=== PATIENT | male | born 1940 | race Caucasian/White ===

== ENCOUNTER 2024-09-08 10:54 | Outpatient (CLI) | payer MEDICARE, SELFPAY | END 2024-09-08 10:55 | disposition home or self-care (01) | LOC: RAD 10:57 | PROVIDERS: PCP Family Medicine; Visit Provider Orthopaedic Surgery Sports Medicine | DX: M16.11 Unilateral primary osteoarthritis, right hip (principal) | CPT/HCPCS: 20610; 77002; Q9966 ==

== ENCOUNTER 2025-07-13 09:37 | Day surgery (SDC) | payer MEDICARE, BC, SELFPAY ==
[2025-07-13] VITALS (26 sets, daily range): BP systolic 75–159; BP diastolic 53–74; PULSE 44–67; RESP 12–20; TEMP 35.9–37; O2SAT 93–100; BMI 27.1
[2025-07-13] MEDS: SODIUM CHLORIDE 0.9 % (FLUSH) 10 ML SYRINGE IVF (10:27)
[2025-07-13] MEDS: LACTATED RINGERS 1000 ML 1,000 ML 100 ML IV ×2 (10:27→13:59)
--- NOTE | 2025-07-13 10:51 | W.PM.H&PU ---
History & Physical Update History & Physical Update H&P Reviewed and patient assessed: No changes noted
[2025-07-13] MEDS: ACETAMINOPHEN 500 MG TABLET 1000 MG PO ×2 (11:50→20:56)
[2025-07-13] MEDS: OXYCODONE (CR) 10 MG TAB.ER.12H PO (11:50)
--- NOTE | 2025-07-13 11:53 | SUR.PREOP ---
TIME?OUT:?1150 PT/RN/MDA?VERIFICATION?OF?SURGICAL?SITE,?PROCEDURE,?AND?CONSENT OBTAINED?PRIOR?TO?INVASIVE?PROCEDURE.
[2025-07-13] MEDS: MIDAZOLAM HCL 1 MG/ML inj IVP (11:54)
--- NOTE | 2025-07-13 12:56 | CRLHL7_ITS ---
For Patients: As a result of the Cures Act, medical imaging exams and procedure reports are released immediately into your electronic medical record. You may view this report before your referring provider. If you have questions, please contact your health care provider. Indication: JOHANA post op Technique: AP hip centered pelvis and lateral view right hip Findings/Impression: Hardware from a right total hip arthroplasty is in satisfactory position. Bone alignment is normal. No sign of acute fracture. Postop changes are within normal limits. Dictated by Eric Burdick MD @ 07/13/2025 3:55:56 PM (Electronically Signed)
[2025-07-13] MEDS: TRANEXAMIC ACID 100 MG/ML INJ 1000 MG IV (12:58)
--- NOTE | 2025-07-13 12:59 | P.ANES_ITS ---
Anesthesia Charges Start Date/Time Anesthesia Start Date: 07/13/25 Anesthesia Start Time: 12:29 Stop Date/Time Anesthesia Stop Date: 07/13/25 Anesthesia Stop Time: 15:35 Summary Extremes of Age - Over 70 or under 1: MDA Coding CPT Codes CPT Codes: ANESTH HIP ARTHROPLASTY - 42561 ([id number]) P2 - PATIENT W/MILD SYST DISEASE, QK - JEWEL HOLE ROUGH OPENER 2-4 CNCRNT ANES PROC, QX - SUPERVISOR BEAM DEPARTMENT SVC W/ MD MED DIRECTION Additional Codes: Summary - Extremes of Age - Over 70 or under 1: MDA ([id number])
--- NOTE | 2025-07-13 12:59 | W.PM.NB ---
Nerve Block Nerve Block Time Seen by Provider: 11:50 Date Seen: 07/13/25 Type of block requested by surgeon for post-operative analgesia: FAROOQ/LFCN Side: right Time out performed: Yes Verification of patient name: Yes Verification of date of : Yes Site marking: site marked Name of person performing procedure: Cullen Continuous monitoring Was continuous monitoring of O2 sat, B/P, monitoring analyst, recorded every 15 minutes?: Yes Procedure Checklist: sterile prep, needles and gloves Ultrasound guided. Images saved: Yes Medications given in 5ml increments after negative aspiration: Ropivicaine %: 0.5 mL: 30 Needle gauge: 20 Precedex (mcg): 25 Patient tolerated procedure well: Yes Additional comments: Needle noted below psoas tendon needle noted adjacent to LFCN Block Charges Block Charge (with Pro Fee): Other Periph Nerve Block Use of Ultrasound Machine for Block: Yes- US Guidance/pain block
--- NOTE | 2025-07-13 12:59 | W.ANESCHARGE ---
Anesthesia Charges Start Date/Time Anesthesia Start Date: 07/13/25 Anesthesia Start Time: 12:29 Stop Date/Time Anesthesia Stop Date: 07/13/25 Anesthesia Stop Time: 15:35 Summary Extremes of Age - Over 70 or under 1: MDA Coding CPT Codes CPT Codes: ANESTH HIP ARTHROPLASTY - 61689 ([id number]) P2 - PATIENT W/MILD SYST DISEASE, QK - FEATHER TRIMMER 2-4 CNCRNT ANES PROC, QX - FLIGHT ATTENDANT SVC W/ MD MED DIRECTION Additional Codes: Summary - Extremes of Age - Over 70 or under 1: MDA ([id number])
--- NOTE | 2025-07-13 13:15 | CRLHL7_ITS ---
For Patients: As a result of the Cures Act, medical imaging exams and procedure reports are released immediately into your electronic medical record. You may view this report before your referring provider. If you have questions, please contact your health care provider. Indication: Hip replacement surgery Technique: AP hip fluoroscopic image. Fluoroscopy time 37.5 seconds. Findings/Impression: Hardware from a right total hip arthroplasty is in satisfactory position. Dictated by Eric Burdick MD @ 07/13/2025 3:18:27 PM (Electronically Signed)
--- NOTE | 2025-07-13 14:33 | PM.ORPRC ---
Procedure Note Date of procedure: 07/13/25 Procedure: PREOPERATIVE DIAGNOSIS: 1. Right hip osteoarthritis, severe, primary POSTOPERATIVE DIAGNOSIS: 1. Right hip osteoarthritis, severe, primary PROCEDURE: 1. Right total hip arthroplasty-anterior approach 2. Intraoperative fluoroscopy interpreted by León Finnegan M.D. for intraoperative evaluation of arthroplasty implant component positioning and leg length/offset evaluation. Fluoroscopy time was 37.5 seconds. SURGEON: León Finnegan MD. ADULT EDUCATION MANAGER: Estevan Tinajero PA-C; KAILA Barrera - Of note, a skilled educational program assistant was critical for this case to aid in patient positioning, tissue retraction, limb manipulation/positioning, and closure. ANESTHESIA: General endotracheal anesthetic EBL: 1000 mL (this seemed to come from both a vessel in the posterior capsular tissue as well as general oozing from the femoral canal.) IMPLANTS: DePuy J[employer]J uncemented total hip [place] cup size 60, hole eliminator, +4 neutral liner Actis stem, high offset, size 9 +1.5 mm ceramic 36 mm head COMPLICATIONS: None evident INDICATIONS: The patient is a pleasant 84-year-old male who has experienced severe right hip pain and difficulty bearing weight. Workup included x-rays which revealed severe osteoarthrosis in the hip. Given the deformity, the dysfunction, and the pain, as well as the failure of nonoperative management, recommendation was made for surgery. FINDINGS: Full-thickness chondral loss diffusely throughout the femoral head and acetabulum. Large 1 cm diameter cyst within the superior central acetabulum. Large effusion upon entering the joint. Osteophytes on the femoral head/neck junction and perimeter of the acetabulum. DESCRIPTION OF PROCEDURE: Following a thorough discussion of risks, benefits, and alternatives consent was obtained and the right hip was marked. The patient was brought to the operating room and placed supine on the operating table. Induction of anesthesia was undertaken. 2 g IV Ancef and 1 g tranexamic acid was administered within 1 hr of incision preoperatively. Proper time-out was performed identifying proper patient, site, procedure. The operative extremity was prepped and draped in the appropriate sterile fashion using ChloraPrep after the patient was positioned on the [place] table with head in neutral alignment and all bony prominences well padded. C-arm fluoroscopic imaging was utilized to confirm proper pelvis rotation and position, and to get true AP films of both the contralateral left, and the affected right hip. This is for comparison. A longitudinal incision was made starting approximately 1 cm distal to the ASIS, and 2-3 cm lateral. The incision was extended distally aiming toward the fibular head. Sharp incision through skin and bovie cautery through the subcutaneous tissue allowed identification of the TFL fascia. This was sharply divided, and the fascia bluntly released from the muscle fibers as we dissected medial. Upon coming to the medial border, we were able to retract the TFL laterally, and penetrated the deeper fascia and identify the crossing circumflex vessels. These were ligated/cauterized. The rectus was elevated from the capsule, and retractors placed laterally and medially along the femoral neck to help with visualization of the capsule. We then performed an inverted T capsulotomy. The capsule was tagged for later repair. Retractors were placed inside the capsule. The femoral neck was visualized after releasing medially down to the lesser trochanter, along the saddle laterally, and up onto the acetabulum. The femoral neck cut was made in line with our preoperative templating. The head was removed in a single piece, and sized. We turned our attention to acetabular preparation. Initially, the labrum was resected from around the perimeter, the pulvinar was excised, allowing us to visualize the false wall. We started the reaming with a 43 mm reamer. This was medialized down to the true wall. We then enlarged our reamers sequentially up to one size less than the selected cup size. We trialed at the same size and found it to have an excellent fit. The selected cup was then opened, inserted, and impacted in line with the goal of 40? of abduction, and 20-25? of anteversion. This was confirmed on C-arm fluoroscopic imaging to be in the appropriate/goal position. Once the cup was placed we placed a hole eliminator and a liner consistent with preop planning. Attention was turned to the femoral preparation. The limb was extended, externally rotated, and adducted. The posteromedial capsule was released, as retractors were placed allowing excellent access to the proximal femur. Initially a dust box worker was followed by canal finder followed by various broaches. We broached sequentially up to the size noted above, found it to have excellent rotational control, and trialing various heads and necks, revealed that appropriate neck offset, and the above noted head size provided the greatest stability, and catholic of length, and offset. C-arm fluoroscopic imaging confirmed position of the stem, as well as leg lengths, which were compared with the pre procedure all fluoroscopic images. Trial implants were removed, the real femoral stem inserted, as was the appropriate head. After reducing, the leg was placed through range of motion and stability was confirmed anterior, posterior, and lateral. A 3 min Betadine soak was then performed, and thorough irrigation with normal saline followed. Closure of the capsule was performed with #1 PDS. Bleeding was confirmed to be controlled at this stage, and the TFL fascia was closed with #0 strata fix. Subcutaneous, and subcuticular closure was performed with 2-0 Stratafix and 4-0 Stratafix, respectively. Dressings were applied, and the patient was awoken from anesthesia and transferred the PACU in stable condition. A skilled educational program assistant was critical for this case to aid in patient positioning, tissue retraction, acetabular and proximal femoral exposure, limb manipulation/positioning, dislocation/relocation, patient safety, and closure. PLAN: 1. Weight bear as tolerated operative extremity. 2. 23 hr perioperative antibiotics. 3. Ice. 4. PT/OT consults for ambulation assistance/mobility education. 5. Social work consult for discharge planning. 6. DVT prophylaxis with at SCDs and Xarelto x5 days followed by aspirin for a total of 1 month.
--- NOTE | 2025-07-13 15:46 | P.ANES_ITS ---
Anesthesia Charges Start Date/Time Anesthesia Start Date: 07/13/25 Anesthesia Start Time: 12:29 Stop Date/Time Anesthesia Stop Date: 07/13/25 Anesthesia Stop Time: 15:35 Summary Extremes of Age - Over 70 or under 1: MEDIUM CYCLE SALESPERSON Coding CPT Codes CPT Codes: ANESTH HIP JOINT SURGERY - 73168 ([id number]) P2 - PATIENT W/MILD SYST DISEASE, QK - SENIOR POLICY ANALYST 2-4 CNCRNT ANES PROC, QX - MEDIUM CYCLE SALESPERSON SVC W/ MD MED DIRECTION Additional Codes: Summary - Extremes of Age - Over 70 or under 1: MEDIUM CYCLE SALESPERSON ([id number])
--- NOTE | 2025-07-13 15:46 | W.ANESCHARGE ---
Anesthesia Charges Start Date/Time Anesthesia Start Date: 07/13/25 Anesthesia Start Time: 12:29 Stop Date/Time Anesthesia Stop Date: 07/13/25 Anesthesia Stop Time: 15:35 Summary Extremes of Age - Over 70 or under 1: [place] Coding CPT Codes CPT Codes: ANESTH HIP JOINT SURGERY - 24653 ([id number]) P2 - PATIENT W/MILD SYST DISEASE, QK - ADJUNCT TEACHER 2-4 CNCRNT ANES PROC, QX - [place] [place] [employer] SVC W/ MD MED DIRECTION Additional Codes: Summary - Extremes of Age - Over 70 or under 1: [place] [employer] ([id number])
[2025-07-13] MEDS: ePHEDrine sulfate 5 MG/ML inj IVP (16:02)
--- NOTE | 2025-07-13 16:12 | SUR.PHASEI ---
Patient having pain when waking up from anesthesia, Fentanyl given for pain time one.
--- NOTE | 2025-07-13 16:30 | SUR.PHASEI ---
Patient meets discharge criteria from PACU
--- NOTE | 2025-07-13 16:52 | PM.IMCN1 ---
Date of Consult Patient: [place] ([facility]) Consult date: 07/13/25 Requesting Physician: Orthopedics Primary Care Provider: Sonido Christopher MD Consult Narrative Reason for consult: Medical management Narrative: Laith Juan is a 84 year old male past medical history significant for hypertension, bradycardia, hyperlipidemia, cardiomyopathy, glaucoma is POD#0 s/p right total hip arthroplasty, Dr. Finnegan. There have been no perioperative complications or nursing concerns reported. Estimated total blood loss documented as 1000 ml. Updated and reviewed the active medical problems, past medical history, past surgical history, social history, allergies and medications in our electronic EMR. Postoperatively, patient is seen with at bedside, reports pain is currently adequately managed. Has been nauseous postoperatively with small amounts of clear liquid emesis. Denies headache or dizziness. Denies chest pain or shortness of breath. Denies abdominal pain. Review of Systems Narrative: REVIEW OF SYSTEMS: Complete review of systems performed and negative unless otherwise stated in HPI or below. [facility] Medical History (Updated 07/13/25 @ 17:33 by Vanita Thakur PA-C) Bradycardia ?R00.1 - Bradycardia, unspecified (ICD-10) Glaucoma ?H40.9 - Unspecified glaucoma (ICD-10) Cardiomyopathy ?I42.9 - Cardiomyopathy, unspecified (ICD-10) Benign essential hypertension ?I10 - Essential (primary) hypertension (ICD-10) Hyperlipidemia ?E78.5 - Hyperlipidemia, unspecified (ICD-10) Subluxation of right shoulder joint ?S43.001A - Unspecified subluxation of right shoulder joint, initial encounter (ICD-10) Traumatic tear of supraspinatus tendon of right shoulder ?S46.811A - Strain of other muscles, fascia and tendons at shoulder and upper arm level, right arm, initial encounter (ICD-10) Subacromial impingement of right shoulder ?M75.41 - Impingement syndrome of right shoulder (ICD-10) Degenerative joint disease of right shoulder ?M19.011 - Primary osteoarthritis, right shoulder (ICD-10) Left carpal tunnel syndrome ?G56.02 - Carpal tunnel syndrome, left upper limb (ICD-10) Surgical History 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) ?Z96.662 - Presence of left artificial ankle joint (ICD-10) History of arthroscopy of left shoulder (05/06/18) ?Z98.890 - Other specified postprocedural states (ICD-10) 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) ?Z96.652 - Presence of left artificial knee joint (ICD-10) Family History Brother Kidney disease Father Heart disease Mother Cerebral aneurysm Social History Narrative: -Emilia What is your current living situation?: I presently have a place to live Problems where you live: no known problems Problems where you live details: na In the past 12 months, utilities in danger of being shut off: no In past 12 months, lack of transportation kept you from medical appts, meetings, work, or getting things needed for daily living: no In the past 12 mos, have been you worried that your food would run out before you had money to buy more?: never true In the past 12 mos, the food you bought just didn't last and you didn't have money to buy more?: never true Smoking Status: Never smoker Do you use any of these nicotine containing products: None Second hand tobacco smoke exposure: No How often do you have a drink containing alcohol: 2-3 times a week AUDIT-C Alcohol total score: 3 Non-prescribed substance use: denies use Caffeine: Yes How often does anyone, including family, friends and others, physically hurt you: never How often does anyone, including family, friends and others, insult or talk down to you: never How often does anyone, including family, friends and others, threaten you with harm: never How often does anyone, including family, friends and others, scream or curse at you: never service: Yes Meds Home Medications and Allergies Home Medications ?Medication ?Instructions ?Recorded ?Confirmed ?Type latanoprost 0.005 % eye drops 1 drp ophthalmic (eye) .Bedtime 12/17/22 07/13/25 History cholecalciferol (vitamin D3) 50 50 mcg PO DAILY 05/31/25 07/13/25 History mcg (2,000 unit) capsule lisinopril 20 mg tablet 20 mg PO DAILY 05/31/25 07/13/25 History acetaminophen 500 mg capsule 500 - 1,000 mg (1 - 2 x 500 mg) PO 07/13/25 Rx Q6H PRN #100 caps aspirin 81 mg tablet,delayed 81 mg PO BID #50 tabs 07/13/25 Rx release glucosamine-chondroitin 750 mg-600 1 tab PO DAILY 07/13/25 07/13/25 History mg tablet multivitamin (Daily Vitamin 1 tab PO DAILY 07/13/25 07/13/25 History Formula tablet) oxycodone 5 mg tablet 2.5 - 5 mg (0.5 - 1 x 5 mg) PO 07/13/25 Rx Q4-6H PRN pain #42 tabs rivaroxaban 10 mg tablet 10 mg PO DAILY #4 tabs 07/13/25 Rx sennosides 8.6 mg-docusate sodium 1 - 4 tab-cap (1 - 4 x 8.6-50 mg) 07/13/25 Rx 50 mg tablet (Senna-S) PO BID PRN constipation #60 tabs Allergies Allergy/AdvReac Type Severity Reaction Status Date / Time atorvastatin Allergy Verified 07/13/25 10:28 diatrizoate sodium Allergy Verified 07/13/25 10:28 ezetimibe Allergy Verified 07/13/25 10:28 Gadolinium-Containing Allergy Verified 07/13/25 10:28 Contrast Medi oxaprozin Allergy Verified 07/13/25 10:28 simvastatin Allergy Verified 07/13/25 10:28 Exam Narrative: Exam Narrative: PHYSICAL EXAM General: Pleasant, conversant, NAD HEENT: Normocephalic, atraumatic, sclera white, EOMI, oral mucosa moist Cardiovascular: RRR, S1S2. No pitting edema Pulmonary: CTA bilaterally without rhonchi, rales, expiratory wheezes. No dyspnea Neurological: Alert, answering questions appropriately, cranial nerves intact, no focal findings Extremities: No gross joint deformity or swelling. Postoperative dressing in place, dry. Neurovascularly intact Skin: Warm, dry. Const: Vital Signs, click to edit/add: Vital Signs - 24 hr 07/13/25 10:25 07/13/25 15:32 07/13/25 15:35 Temperature 97.8 F 98.3 F Pulse Rate 64 67 65 Respiratory Rate 16 16 14 Blood Pressure 159/74 H 75/60 L 82/59 L Pulse Oximetry 97 95 96 Oxygen Delivery Me thod Room Air Room Air 07/13/25 15:40 07/13/25 15:45 07/13/25 15:50 Temperature Pulse Rate 55 L 60 54 L Respiratory Rate 12 16 16 Blood Pressure 102/54 L 96/58 L 95/55 L Pulse Oximetry 93 94 95 Oxygen Delivery Me thod Room Air 07/13/25 15:55 07/13/25 16:00 07/13/25 16:05 Temperature Pulse Rate 59 L 57 L 55 L Respiratory Rate 16 14 17 Blood Pressure 96/57 L 88/53 L 92/56 L Pulse Oximetry 100 100 93 Oxygen Delivery Me thod 07/13/25 16:10 07/13/25 16:15 07/13/25 16:20 Temperature 98.3 F Pulse Rate 64 60 54 L Respiratory Rate 20 14 16 Blood Pressure 99/58 L 113/58 L 112/53 L Pulse Oximetry 96 97 100 Oxygen Delivery Me thod Room Air 07/13/25 16:25 Temperature Pulse Rate 61 Respiratory Rate 14 Blood Pressure 113/69 Pulse Oximetry 99 Oxygen Delivery Me thod Assessment and Plan Assessment and plan (1) Osteoarthritis of right hip: Problem comment: -POD#0 s/p R JOHANA, Dr. Finnegan, 07/13/25 -perioperative management including pain management and anticoagulation per Orthopedic surgery -encourage postoperative pulmonary hygiene -PT OT consults -plan to discharge home with spouse tomorrow -EBL 1000 mL, recheck hemoglobin in a.m. Status: Chronic (2) Bradycardia: Problem comment: -chronic, baseline 50s, pre op EKG shows vent rate 57 Status: Acute (3) Benign essential hypertension: Problem comment: -resume lisinopril on d/c Status: Acute Plan May resume home medications upon discharge. Consider antihypertensives in the morning if necessary. Hospital medicine team will sign off. Please contact our service with any questions or concerns. Total Time Spent Total Time Spent: Today I spent 55 minutes seeing the patient, reviewing Expanse and EPIC notes/diagnostics, discussing the care plan with our care time that includes social work, PT/OT, pharmacy, RT, shelter and documenting my impressions and plan in the medical record.
[2025-07-13] MEDS: PROCHLORPERAZINE 5 MG/ML VIAL IV (17:56)
[2025-07-13] MEDS: LACTATED RINGERS 1000 ML 1,000 ML 75 ML IV (18:02)
[2025-07-13] MEDS: CEFAZOLIN 2 GM in 0.9 % SODIUM CHLORIDE Mini-bag 100 ML IVPB (18:52)
[2025-07-13] MEDS: ONDANSETRON 2 MG/ML inj 4 MG IVP (20:21)
[2025-07-13] MEDS: SENNOSIDES 1 TAB TABLET 2 TAB PO (20:57)
--- NOTE | 2025-07-13 23:31 | PC.NURSE ---
Pt returned from OR at 1637. Pt reported pain 3-10/10 , prn and scheduled pain Meds given. pt had N/V x3, prn nausea meds given. Pt reports nausea resolving. Pt assist of 1 w/walker. pt reports no pain or nausea at this time. pt sleeping comfortably in bed, pulse oximeter on.
[2025-07-14 03:00] VITALS: BP 125/62; PULSE 62; RESP 16; TEMP 36.8; O2SAT 98
[2025-07-14] MEDS: CEFAZOLIN 2 GM in 0.9 % SODIUM CHLORIDE Mini-bag 100 ML IVPB (03:05)
[2025-07-14] MEDS: ACETAMINOPHEN 500 MG TABLET 1000 MG PO ×2 (03:05→08:16)
--- NOTE | 2025-07-14 05:46 | PC.NURSE ---
End of shift report [id number]:?AxOx4.?VSS. Afebrile. On RA. Denies nausea/vomiting. Right hip dressing is C/D/I; CMS is intact.?Ambulates 1A, GB, W.?Rates pain from?a 4-5/10, prn pain meds offered and?given with?relief.?Pt is VIEJAS. Bed alarm on, call light within reach.?
[2025-07-14 06:33] LABS: Hemoglobin* 9.5 gm/dL (13.5-17.5)
[2025-07-14 07:10] VITALS: PULSE 71
[2025-07-14 07:40] VITALS: BP 111/59; PULSE 71; RESP 18; O2SAT 99
[2025-07-14] MEDS: SENNOSIDES 1 TAB TABLET 2 TAB PO (08:16)
[2025-07-14] MEDS: RIVAROXABAN 10 MG TABLET PO (08:16)
[2025-07-14] MEDS: SODIUM CHLORIDE 0.9 % (FLUSH) 10 ML SYRINGE IVF (08:17)
--- NOTE | 2025-07-14 13:54 | PC.NURSE ---
Pt pleasant and cooperative with all cares and tasks. Pain controlled per MAR. No BM, senna given with breakfast, educated on importance of keeping hydrated, ambulation, and stool softeners while using narcotics. IV DC'd, cath tip intact. DC instructions given verbally and in writing to pt and spouse. All questions answered. Pt to return home with . DC @ 6890
--- NOTE | 2025-07-14 22:30 | PM.ORPN ---
Subjective Subjective Date Seen: 07/14/25 Principal diagnosis: Status postop day 1, right total hip arthroplasty - anterior approach Interval history: Patient reports doing okay. No acute events over night, aside from nausea/vomiting in the early postop phase, remedy by anti nausea medications. No further nausea/vomiting. Recently finished breakfast without nausea/vomiting. Pain is mild, managed with scheduled and PRN medications, ice. Choosing to take 2.5 mg oxycodone as needed. Complains of soreness over the right lateral thigh. DVT prophylaxis: Rivaroxaban 5 days followed by 81 mg aspirin by mouth twice daily 25 days, SCDs, walking. Denies fevers, chills, aches, further N/V, CP, SOB/LOTT, or lightheadedness. Ortho Exam Narrative Exam Narrative: -Patient appears comfortable in recliner; no apparent acute distress. -Alert and oriented times 3 -Operative hip mildly swollen; soft tissues supple; no obvious erythema. No obvious hematoma. Ecchymosis minimal. Warmth appropriate. Sore to touch lateral right thigh -Surgical dressing clean, dry, intact; no obvious drainage, no erythematous streaking peripheral to the bandage -Bilateral calves soft and supple; no significant swelling, edema, tenderness, erythema, discoloration, warmth, or palpable cords -2+ DP/PT pulses, intact dermatomes and myotomes distally (5/5 strength). No numbness about the lateral femoral cutaneous nerve distribution. Const Vital Signs, click to edit/add: Vital Signs - 24 hr 07/13/25 22:50 07/13/25 23:00 07/13/25 23:00 Temperature 97.5 F L Pulse Rate 62 Pulse Rate [Right Pulse Oximeter] Respiratory Rate 14 14 Blood Pressure [Left Arm] 124/66 Blood Pressure [Right Arm] Pulse Oximetry 98 98 Oxygen Delivery Method Room Air Room Air 07/14/25 03:00 07/14/25 07:10 07/14/25 07:40 Temperature 98.2 F Pulse Rate 71 Pulse Rate [Right Pulse Oximeter] 62 Respiratory Rate 16 18 Blood Pressure [Left Arm] 125/62 Blood Pressure [Right Arm] Pulse Oximetry 98 99 Oxygen Delivery Method Room Air Room Air 07/14/25 07:40 Temperature Pulse Rate Pulse Rate [Right Pulse Oximeter] 71 Respiratory Rate 18 Blood Pressure [Left Arm] Blood Pressure [Right Arm] 111/59 L Pulse Oximetry 99 Oxygen Delivery Method Room Air Assessment and Plan Assessment and plan (1) Osteoarthritis of right hip: Problem details: -POD#1 s/p R JOHANA, Dr. Finnegan, 07/13/25 -perioperative management including pain management and anticoagulation per Orthopedic surgery -encourage postoperative pulmonary hygiene -PT OT consults -plan to discharge home with spouse tomorrow -EBL 1000 mL, recheck hemoglobin in a.m. (9.5 due to acute blood loss anemia, surgically rated, asymptomatic) Status: Chronic (2) Bradycardia: Problem details: -chronic, baseline 50s, pre op EKG shows vent rate 57 Status: Acute (3) Benign essential hypertension: Problem details: -resume lisinopril on d/c Status: Acute Plan - Complete 23 hour perioperative antibiotics. - PT/OT consult for education and assistance. - Social work consult for discharge planning - home for discharge - Prescribed analgesics as needed - encouraged him to remain on top of the pain, as patient is considering not taking oxycodone at home. Okay to take 2.5 mg oxycodone as needed. Stay scheduled with acetaminophen. - DVT prophylaxis: 5 days rivaroxaban followed by 25 days 81 mg aspirin by mouth twice daily, walking, and SCDs - Anticipation is for discharge to home with today 07/14/2025 if the patient remains medically stable, pain is controlled, and they are safe with mobilization.
== END 2025-07-14 13:23 | disposition home or self-care (01) ==
LOC: OR 09:40 → MEDSURG 09:41
PROVIDERS: Physician Assistant; PCP Family Medicine; Visit Provider Orthopaedic Surgery Sports Medicine
PROC: (CPT 27130; principal; 2025-07-13 13:15)
DX: M16.11 Unilateral primary osteoarthritis, right hip (principal); G89.18 Other acute postprocedural pain; R00.1 Bradycardia, unspecified; I10 Essential (primary) hypertension; I42.9 Cardiomyopathy, unspecified; R11.2 Nausea with vomiting, unspecified; Z79.82 Long term (current) use of aspirin
CPT/HCPCS: 27130; 01210; 01214; 36415; 64450; 73501; 76000; 76942; 85018; 86850; 86900; 86901; 97110; 97116; 97161; 97165; 97535; 99100; A9270; C1776; J0690; J0780; J1100; J1171; J2250; J2405; J2704; J2710; J2795; J3010; J3490; J7120